=== PATIENT | male | born 1975 | race American Indian/Alaskan Native ===

== ENCOUNTER 2017-02-16 09:38 | Emergency (ER) | payer SELFPAY ==
[2017-02-16] MEDS ORDERED: BOOSTRIX IM ONE (13:45)
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
[2017-02-16 14:11] VITALS: BP 134/90
== END 2017-02-16 14:17 | disposition home or self-care (01) ==
LOC: ED 09:38
DX: T20.16XA Burn of first degree of forehead and cheek, initial encounter (principal); T23.271A Burn of second degree of right wrist, initial encounter; F17.210 Nicotine dependence, cigarettes, uncomplicated; X17.XXXA Contact with hot engines, machinery and tools, initial encounter; Y93.89 Activity, other specified; Y92.89 Other specified places as the place of occurrence of the external cause; Y99.8 Other external cause status
CPT/HCPCS: 90471; 90715; 99283